=== PATIENT | male | born 1940 ===

== ENCOUNTER 2017-09-24 15:55 | Emergency (ER) | payer MEDICARE, OTHER ==
[2017-09-24 15:55] VITALS: BMI 29.0
--- NOTE | 2017-09-24 16:49 | ED PDOC ---
HPI: General Adult Time Seen by Provider: 09/24/17 16:21 Chief Complaint (Nursing): Dizziness/Lightheaded History Per: Patient Additional Complaint(s): Pt. states he woke up this morning at 0630 with dizziness described as a feeling of falling. States that he went to see Dr. Stearns who instructed them to come to ED for further evaluation. Pt. states symptoms have improved since they started but are still present. Denies headache, chest pain, SOB, fever, numbness, tingling, N/V/D, hearing changes, abdominal pain. Against Medical Advice - AMA Patient Left Against Medical Advice: The patient declines admission to the hospital and wishes to leave the Emergency Department. This action is against my medical advice. This decision was made with informed refusal. The patient was told that admission to the hospital is necessary. Explanation of the reasons why were discussed. The risks of leaving were explained to the patient and include, but are not limited to, worsening of known or currently unknown conditions, permanent disability and from undiagnosed or untreated conditions. The patient has the capacity to make this informed decision and understands my explanation of the current medical problem and risks of leaving. The patient voluntarily accepts these risks and signed an AMA form documenting our conversation. The patient was given the opportunity to ask questions and reconsider. The patient was encouraged to return to the Emergency Department at any time for further care. Past Medical History Reviewed: Historical Data, Nursing Documentation, Vital Signs Vital Signs: Last Vital Signs Temp 98.1 F 09/24/17 18:39 Pulse 68 09/24/17 18:39 Resp 18 09/24/17 18:39 BP 118/72 09/24/17 18:39 Pulse Ox 100 09/24/17 18:39 - Medical History PMH: Anemia, Atrial Fibrillation (Paroxysmal), Diabetes, Gastrointestinal Ulcer , HTN Denies: Chronic Kidney Disease - Family History Family History: States: No Known Family Hx - Immunization History Hx Tetanus Toxoid Vaccination: No Hx Influenza Vaccination: No Hx Pneumococcal Vaccination: No - Home Medications Home Medications: Ambulatory Orders Medication Instructions Recorded Metformin HCl [Glucophage] 1,000 mg PO BID 09/28/15 Rosuvastatin Calcium [Crestor] 10 mg PO DAILY 09/28/15 Famotidine [Pepcid] 20 mg PO BID #0 tab 09/29/15 GlipiZIDE [Glucotrol] 10 mg PO DAILY #0 tab 09/29/15 Aspirin 325 mg PO DAILY 09/17/17 Irbesartan [Avapro] 150 mg PO DAILY 09/17/17 Lisinopril [Prinivil] 20 mg PO DAILY 09/17/17 amLODIPine [Norvasc] 5 mg PO DAILY 09/17/17 oxyCODONE/Acetaminophen [Percocet 1 tab PO QID PRN #7 tab 09/17/17 5/325 mg Tab] traMADol/Acetaminophen [Ultracet 1 tab PO TID PRN #15 tab 09/23/17 37.5/325 mg] - Allergies Allergies/Adverse Reactions: Allergies Allergy/AdvReac Type Severity Reaction Status Date / Time Sulfa (Sulfonamide Allergy Verified 09/17/17 19:13 Antibiotics) Review of Systems ROS Statement: Except As Marked, All Systems Reviewed And Found Negative Neurological: Positive for: Dizziness Physical Exam - Reviewed Nursing Documentation Reviewed: Yes Vital Signs Reviewed: Yes - Physical Exam Appears: Positive for: Well, Non-toxic, No Acute Distress Head Exam: Positive for: ATRAUMATIC, NORMAL INSPECTION, NORMOCEPHALIC Skin: Positive for: Normal Color, Warm. Negative for: Rash Eye Exam: Positive for: Normal appearance, EOMI, PERRL. Negative for: Nystagmus ENT: Positive for: Normal ENT Inspection Neck: Positive for: Normal, Painless ROM Cardiovascular/Chest: Positive for: Regular Rate, Rhythm Respiratory: Positive for: CNT, Normal Breath Sounds Gastrointestinal/Abdominal: Positive for: Normal Exam, Bowel Sounds, Soft. Negative for: Tenderness Back: Positive for: Normal Inspection Extremity: Positive for: Normal ROM Neurologic/Psych: Positive for: Alert, Oriented, Gait (steady, unassisted). Negative for: Aphasia, Facial Droop - Laboratory Results Result Diagrams: 09/24/17 17:08 09/24/17 17:08 - ECG ECG: Positive for: Interpreted By Me ECG Rhythm: Negative for: ST/T Changes Rate: 66 O2 Sat by Pulse Oximetry: 98 - Progress ED Course And Treament: Labs ordered. Antivert 25mg PO, IV NS hydration ordered. CT head w/o contrast ordered. CT head w/o contrast: negative. On re-evaluation, pt. reports complete relief of symptoms. Pt. informed that 23 hr telemetry observation required. Pt. refused and does not want to stay. Reports that his is admitted in [facility] and has a stroke. States he will f/u with Dr. Stearns and sign out AMA today. Discussed results and plan with patient and daughter (lindy) using natural remedy consultant [id number]. Disposition - Clinical Impression Clinical Impression: Dizziness - Patient ED Disposition Is Patient to be Admitted: No - Disposition Disposition: Against Medical Advice Disposition Time: 19:14 Condition: STABLE Instructions: Against Medical Advice (ED), Dizziness (ED) Forms: [employer] (Bengali) Print Language: UKRAINIAN
[2017-09-24] MEDS: Sodium Chloride 0.9% 1,000 ML IV ONE (17:06)
[2017-09-24 17:16] LABS: BASO # 0.1 K/uL (0.0-0.2); BASO % 0.9 % (0.0-2.0); EOS # 0.5 K/uL (0.0-0.7); HEMATOCRIT 39.2 % (35.0-51.0); LYMPH % 24.9 % (20.0-40.0); MEAN CELL VOLUME 87.3 fl (80.0-94.0); MEAN CORPUSCULAR HEMOGLOBIN 28.6 pg (27.0-31.0); MEAN CORPUSCULAR HGB CONC 32.7 g/dL (33.0-37.0); MEAN PLATELET VOLUME 9.9 fl (7.2-11.7); MONO # 0.7 K/uL (0.0-0.8); MONO % 9.1 % (0.0-10.0); NEUT # 4.8 K/uL (1.8-7.0); NEUT % 59.1 % (50.0-75.0); RED CELL DISTRIBUTION WIDTH 13.7 % (11.5-14.5)
[2017-09-24 17:35] LABS: ALB/GLOB RATIO 1.1 (1.0-2.1); ALKALINE PHOSPHATASE 80 U/L (38-126); ALT/SGPT 38 U/L (21-72); AST/SGOT 23 U/L (17-59); BILIRUBIN,TOTAL 0.4 mg/dl (0.2-1.3); BLOOD UREA NITROGEN 22 mg/dl (9-20); CALCIUM 9.3 mg/dL (8.4-10.2); CARBON DIOXIDE 27 mmol/L (22-30); CHLORIDE 105 mmol/L (98-107); GFR AFRICAN-AMERICAN > 60; GLUCOSE,RANDOM 205 mg/dL (75-110); POTASSIUM 4.1 MMOL/L (3.6-5.0); SODIUM 142 mmol/l (132-148); TOTAL PROTEIN 7.6 G/DL (6.3-8.2)
--- NOTE | 2017-09-24 17:45 | CT ---
PROCEDURE: CT HEAD WITHOUT CONTRAST. HISTORY: dizziness COMPARISON: None available. TECHNIQUE: Axial computed tomography images were obtained through the head/brain without intravenous contrast. Radiation dose: Total exam DLP = 862.14 mGy-cm. This CT exam was performed using one or more of the following dose reduction techniques: Automated exposure control, adjustment of the mA and/or kV according to patient size, and/or use of iterative reconstruction technique. FINDINGS: HEMORRHAGE: No intracranial hemorrhage. BRAIN: No mass effect or edema. No evidence of acute infarct. Moderate periventricular white matter lucency with patchy and confluent areas of deep and subcortical white matter lucency consistent with age-related microvascular ischemic change. VENTRICLES: Unremarkable. No hydrocephalus. CALVARIUM: Unremarkable. PARANASAL SINUSES: Unremarkable as visualized. No significant inflammatory changes. MASTOID AIR CELLS: Unremarkable as visualized. No inflammatory changes. OTHER FINDINGS: None. IMPRESSION: No intracranial mass, hemorrhage or evidence of acute infarct. Chronic white matter ischemic change. Otherwise unremarkable.
[2017-09-24 18:40] VITALS: BP 118/72; RESP 18; TEMP 98.1
[2017-09-24 19:14] VITALS: PULSE 66; O2SAT 98
--- NOTE | 2017-09-25 11:00 | CARD ---
APPROVED REPORT EKG Measurement Heart [id number] MD [id number] <Conclusion> Normal sinus rhythm Inferior infarct, age undetermined Abnormal ECG
== END 2017-09-24 18:52 | disposition left against medical advice (07) ==
LOC: H.ER 15:55
DX: R42 Dizziness and giddiness (principal); E11.9 Type 2 diabetes mellitus without complications; I10 Essential (primary) hypertension; I48.0 Paroxysmal atrial fibrillation; Z79.82 Long term (current) use of aspirin
CPT/HCPCS: 70450; 80053; 82948; 84484; 85025; 93005; 99285; J7040